=== PATIENT | female | born 1975 | race African-American/Black ===

== ENCOUNTER 2017-08-13 14:35 | Outpatient (CLI) | payer OTHER ==
--- NOTE | 2017-08-13 15:43 | RAD ---
PA AND LATERAL OF THE CHEST 08/13/17 INDICATION: 42-year-old female with paroxysmal nocturnal dyspnea for two months. COMPARISON: Prior exam dated 04/25/14. FINDINGS: The lungs are clear. The cardiomediastinal silhouette is normal. No acute osseous abnormality is evid ent. IMPRESSION: No acute cardiopulmonary abnormality. POS: [facility]
== END 2017-08-13 14:36 | disposition home or self-care (01) ==
LOC: MADRAD 14:35
PROVIDERS: ATTEND Family Medicine
DX: R06.00 Dyspnea, unspecified (principal)
CPT/HCPCS: 71046

== ENCOUNTER 2017-12-13 00:15 | Emergency (ER) | payer SELFPAY ==
[2017-12-13] MEDS ORDERED: Lidocaine 1% w/Epinephrine 1:100K 20 ML VIAL ONE (02:56)
[2017-12-13] MEDS ORDERED: Adacel (T-DAP) 0.5 ML VIAL ONE (03:45)
[2017-12-13] MEDS ORDERED: Sodium Chloride Irrig Solution 250 ML BOT ONE (08:35)
== END 2017-12-13 04:12 | disposition home or self-care (01) ==
LOC: MADERS 00:15
DX: L05.01 Pilonidal cyst with abscess (principal); E66.9 Obesity, unspecified
CPT/HCPCS: 10080; 87070; 87077; 87186; 87205; 90471; 90715; J2001

== ENCOUNTER 2017-12-14 17:56 | Emergency (ER) | payer SELFPAY ==
[~2017-12-14 17:56] MED LIST: Sodium Chloride Irrig Solution 250 ML BOT ONE
[2017-12-14] MEDS ORDERED: Lidocaine 2% Jelly 5 ML TUBE ONE (18:42)
[2017-12-14] MEDS ORDERED: Triple Antibiotic Oint 1 GM Packet ONE (19:32)
== END 2017-12-14 19:36 | disposition home or self-care (01) ==
LOC: MADERS 17:56
DX: Z48.817 Encounter for surgical aftercare following surgery on the skin and subcutaneous tissue (principal); E66.9 Obesity, unspecified; Z79.899 Other long term (current) drug therapy
CPT/HCPCS: 99282

== ENCOUNTER 2018-08-15 23:36 | Emergency (ER) | payer SELFPAY | END 2018-08-16 00:45 | disposition home or self-care (01) | LOC: MADERS 23:36 | DX: J20.8 Acute bronchitis due to other specified organisms (principal); E66.9 Obesity, unspecified | CPT/HCPCS: 87804; 99283 ==

== ENCOUNTER 2019-08-19 04:04 | Emergency (ER) | payer SELFPAY ==
[2019-08-19] MEDS ORDERED: Dexamethasone 4 MG TAB ONE (06:06)
[2019-08-19] MEDS ORDERED: Azithromycin 250 MG TAB ONE (06:06)
[2019-08-19] MEDS ORDERED: Benzonatate 100 MG CAP ONE (06:06)
== END 2019-08-19 06:12 | disposition home or self-care (01) ==
LOC: MADERS 04:04
DX: J18.9 Pneumonia, unspecified organism (principal); I10 Essential (primary) hypertension; E66.9 Obesity, unspecified
CPT/HCPCS: 99283; J8540

== ENCOUNTER 2020-05-09 20:35 | Emergency (ER) | payer OTHER, SELFPAY ==
[2020-05-10 17:28] LABS: SARS-CoV-2 MS2 Positive; SARS-CoV-2 N Gene Positive; SARS-CoV-2 S Gene Positive; SARS-CoV-2 by NAA DETECTED (NotDetected); SARS-CoV-2 orf1ab Positive
== END 2020-05-09 21:50 | disposition home or self-care (01) ==
LOC: MADERS 20:35
DX: U07.1 COVID-19 (principal); I10 Essential (primary) hypertension; E66.9 Obesity, unspecified
CPT/HCPCS: 87635; 99281; U0003

== ENCOUNTER 2020-10-17 10:34 | Emergency (ER) | payer BC, OTHER, SELFPAY | END 2020-10-17 12:10 | disposition home or self-care (01) | LOC: MADERS 10:34 | DX: J02.9 Acute pharyngitis, unspecified (principal); E66.9 Obesity, unspecified; Z86.16 Personal history of COVID-19; Z79.899 Other long term (current) drug therapy; I10 Essential (primary) hypertension | CPT/HCPCS: 87081; 87430; 99283 ==

== ENCOUNTER 2021-07-01 20:34 | Emergency (ER) | payer BC ==
[2021-07-02 22:45] LABS: SARS-CoV-2 PCR by NAA Not Detected (NotDetected)
== END 2021-07-01 23:10 | disposition home or self-care (01) ==
LOC: MADERS 20:34
DX: R09.81 Nasal congestion (principal); Z20.822 Contact with and (suspected) exposure to COVID-19; I10 Essential (primary) hypertension; E66.9 Obesity, unspecified; Z79.899 Other long term (current) drug therapy
CPT/HCPCS: 99283; U0003; U0005

== ENCOUNTER 2022-05-28 21:28 | Emergency (ER) | payer BC ==
[2022-05-28] MEDS ORDERED: Lidocaine 1% w/Epinephrine 1:100K 20 ML VIAL ONE (22:20)
== END 2022-05-28 22:55 | disposition home or self-care (01) ==
LOC: MADERS 21:28
DX: L05.91 Pilonidal cyst without abscess (principal); I10 Essential (primary) hypertension; Z23 Encounter for immunization
CPT/HCPCS: 10080; 87070; 87077; 87205

== ENCOUNTER 2025-04-03 13:24 | Emergency (ER) | payer OTHER, SELFPAY ==
[2025-04-03] MEDS ORDERED: Metoclopramide HCl 10 MG (2 mL) VIAL ONE (15:15)
[2025-04-03] MEDS ORDERED: diphenhydrAMINE 50 MG/ML VIAL ONE (15:15)
[2025-04-03] MEDS ORDERED: Ketorolac Tromethamine 30 MG (1 mL) VIAL ONE (16:45)
== END 2025-04-03 16:55 | disposition home or self-care (01) ==
LOC: MADERS 13:24
DX: R51.9 Headache, unspecified (principal); M25.512 Pain in left shoulder; I10 Essential (primary) hypertension
CPT/HCPCS: 96374; 96375; J1200; J1885; J2765; J7030